=== PATIENT | female | born 1960 | race American Indian/Alaskan Native ===

== ENCOUNTER 2021-08-31 12:47 | Outpatient (CLI) | payer MEDICARE ==
--- NOTE | 2021-08-31 14:28 | Mammography Report ---
DIGITAL SCREENING MAMMOGRAM WITH CAD, 08/31/2021 CLINICAL INFORMATION / INDICATION: Routine screening mammography. TECHNIQUE: Digital bilateral 2D mammography was obtained in the craniocaudal and mediolateral obliqu e projections. This examination was interpreted with the benefit of Computer-Aided Detection analysis . COMPARISON: None FINDINGS: Breast Density: There are scattered areas of fibroglandular density. No dominant mass, suspicious calcifications, or architectural distortion in either breast. Mammogram images are suboptimal. Best films possible were obtained, although hindered by patient's cl inical condition. IMPRESSION: No mammographic evidence of malignancy. Follow up recommendation: Routine yearly BI-RADS Category 1: NEGATIVE A "normal" or negative report should not discourage follow up or biopsy of a clinically significant f inding. A written summary of these findings will be mailed to the patient. The patient will be entered into a mammography reporting system which will generate a reminder letter for the patient's next appointmen t at the appropriate interval. The [employer] recommends yearly mammograms starting at age 40 and continuing as l jose as a woman is in good health. Breast MRI is recommended for women with an approximate 20-25% or greater lifetime risk of breast cancer, including women with a strong family history of breast or ova nav cancer or who have been treated for Hodgkin's disease. Signer Name: Yanelis Blandon MD Signed: 08/31/2021 2:24 PM Workstation Name: [email or web address]
== END 2021-08-31 12:48 | disposition home or self-care (01) ==
LOC: SPVWC 12:47
PROVIDERS: ATTEND Internal Medicine
DX: Z12.31 Encounter for screening mammogram for malignant neoplasm of breast (principal)
CPT/HCPCS: 77067

== ENCOUNTER 2021-11-18 08:27 | Outpatient (CLI) | payer MEDICARE ==
--- NOTE | 2021-11-18 10:03 | Magnetic Resonance Report ---
MRI lumbar spine without contrast INDICATION: Low back pain with right lower extremity weakness TECHNIQUE: Axial and sagittal images FINDINGS: Scoliotic curvature the spine. Conus appears normal. No marrow replacement process is seen. L1-L2: Facet changes small disc bulge. Disc bulges slightly asymmetric to the left however no severe neuroforaminal narrowing. L2-L3: Disc desiccation with posterior disc bulge and facet arthropathy. No significant neuroforamina l narrowing or canal narrowing. L3-L4: Minimal anterolisthesis. Disc desiccation with broad-based posterior disc bulge asymmetric to the right. Axmb-sl-[id number] right lateral recess narrowing and neuroforaminal narrowing. Mild left la teral recess narrowing. Mild canal narrowing. L4-L5: Disc desiccation with broad-based posterior disc bulge. Mild bilateral lateral recess narrowin g. No severe neuroforaminal narrowing. L5-S1: Minimal anterolisthesis. Broad-based posterior disc bulge asymmetric to the left. Moderate to severe canal narrowing lateral recess narrowing. Mild to moderate left neuroforaminal narrowing. IMPRESSION: Multilevel discogenic degenerative change with scoliotic curvature the spine. Please see above level by level description. Signer Name: Howie Conrad MD Signed: 11/18/2021 9:58 AM Workstation Name: [email or web address]
== END 2021-11-18 08:28 | disposition home or self-care (01) ==
LOC: MRI 08:27
PROVIDERS: ATTEND Internal Medicine
DX: M47.816 Spondylosis without myelopathy or radiculopathy, lumbar region (principal); M51.26 Other intervertebral disc displacement, lumbar region
CPT/HCPCS: 72148